=== PATIENT | female | born 1950 | race Caucasian/White ===

== ENCOUNTER → 2018-05-22 21:05 | Outpatient (REF) | payer MEDICARE, MEDICAID, SELFPAY ==
[2018-05-22 21:45] LABS: Anion Gap 8.4 mmol/L (3-11); BUN 14 mg/dL (7-18); CO2 25.6 mmol/L (21.0-32.0); CREATININE 0.71 mg/dL (0.55-1.02); Calcium 9.8 mg/dL (8.5-10.1); Chloride 108 mmol/L (98-107); Glucose 92 mg/dL (70-100); Potassium 4.7 mmol/L (3.5-5.1); Sodium 142 mmol/L (136-145)
== END ==
LOC: NCHCN 21:05
PROVIDERS: PCP Nurse Practitioner Family; Visit Provider Nurse Practitioner Family
DX: M81.0 Age-related osteoporosis without current pathological fracture (principal)
CPT/HCPCS: 80048

== ENCOUNTER 2018-07-08 11:43 | Outpatient (REF) | payer MEDICARE, MEDICAID, SELFPAY ==
[2018-07-08 13:34] LABS: Calcium 9.5 mg/dL (8.5-10.1)
[2018-07-09 09:51] LABS: Calcium (Random Urine) 14.2 mg/dl
[2018-07-09 13:56] LABS: Parathyroid Hormone,Intact 53 pg/ml (19-88)
[2018-07-09 14:20] LABS: Albumin 67.8 % (55.8-66.1); Total Protein 6.9 g/dl (6.3-8.2)
[2018-07-12 16:16] LABS: 6-monoacetylmorphine Not Detected ng/mL (Cutoff: 25); Amphetamines Negative ng/mL (Cutoff: 500); Barbiturates Negative ng/mL (Cutoff: 200); Benzodiazepines Negative ng/mL (Cutoff: 100); Cocaine Negative ng/mL (Cutoff: 150); Codeine Not Detected ng/mL (Cutoff: 25); Comment Normal; Creatinine, U 47.4 mg/dL; Dihydrocodeine Not Detected ng/mL (Cutoff: 25); EDDP Not Detected ng/mL (Cutoff: 25); Fentanyl Not Detected ng/mL (Cutoff: 2); Hydrocodone Not Detected ng/mL (Cutoff: 25); Hydromorphone Not Detected ng/mL (Cutoff: 25); Hydromorphone-3-beta-glucuroni Not Detected ng/mL (Cutoff: 100); Meperidine Not Detected ng/mL (Cutoff: 25); Methadone Not Detected ng/mL (Cutoff: 25); Morphine Not Detected ng/mL (Cutoff: 25); N-desmethyltapentadol Not Detected ng/mL (Cutoff: 50); Naloxone Not Detected ng/mL (Cutoff: 25); Norbuprenorphine Not Detected ng/mL (Cutoff: 5); Norfentanyl Not Detected ng/mL (Cutoff: 2); Norhydrocodone Not Detected ng/mL (Cutoff: 25); Normeperidine Not Detected ng/mL (Cutoff: 25); Noroxycodone Not Detected ng/mL (Cutoff: 25); Noroxymorphone Not Detected ng/mL (Cutoff: 25); O-desmethyltramadol Not Detected ng/mL (Cutoff: 25); Phencyclidine Negative ng/mL (Cutoff: 25); Propoxyphene Not Detected ng/mL (Cutoff: 25); Specific Gravity 1.006; Tapentadol Not Detected ng/mL (Cutoff: 25); Tetrahydrocannabinol Presumptive Positive ng/mL (Cutoff: 50); Tramadol Not Detected ng/mL (Cutoff: 25); pH 7.3
[2018-07-13 08:27] LABS: Carboxy-THC Interpretation Positive.; Delta-9 CarboxyThc by LC-MS/MS 312 ng/mL (Cutoff:<3)
== END 2018-07-08 12:03 ==
LOC: NCHCN 11:43
PROVIDERS: PCP Nurse Practitioner Family; Visit Provider Nurse Practitioner Family
DX: M54.2 Cervicalgia (principal); M54.5 Low back pain; G89.29 Other chronic pain; Z79.899 Other long term (current) drug therapy
CPT/HCPCS: 80307; 80349; 80364; 82040; 82310; 82340; 83970; 84165

== ENCOUNTER 2018-07-08 11:59 | Outpatient (CLI) | payer MEDICARE, MEDICAID, SELFPAY | END 2018-07-08 12:19 | PROVIDERS: PCP Nurse Practitioner Family; Visit Provider Student in an Organized Health Care Education/Training Program | DX: E83.52 Hypercalcemia (principal); M81.0 Age-related osteoporosis without current pathological fracture; N20.0 Calculus of kidney ==

== ENCOUNTER 2018-07-15 01:04 | Outpatient (CLI) | payer MEDICARE, MEDICAID, SELFPAY ==
--- NOTE | 2018-07-08 11:54 | DI.RAD_ITS ---
SYMPTOMS/DIAGNOSIS: H/O LUMBAR FUSION, ASSESS STABILITY, FAILED BACK SURGICAL SYNDROME, M96.1, POST LAMINECTOMY SYNDROME LUMBOSACRAL SPINE: Five views were obtained. Note is made of Muniz rods in place at what appears to be the L 4 - 5 level. The hardware appears intact. There are degenerative changes changes throughout the lumbar spine. The SI joints show mild degenerative changes. No true lateral view was obtained and I would request the patient return for true lateral view to assess vertebral alignment. Alternatively CT of the lumbar region could be obtained to assess status of the lumbar fusion.
== END 2018-07-15 01:24 ==
PROVIDERS: PCP Nurse Practitioner Family; Visit Provider Nurse Practitioner Family
DX: M96.1 Postlaminectomy syndrome, not elsewhere classified (principal)
CPT/HCPCS: 72110

== ENCOUNTER → 2018-07-17 09:39 | Outpatient (BNVA) | payer MEDICARE, MEDICAID, SELFPAY | PROVIDERS: Visit Provider Surgery | DX: Z12.11 Encounter for screening for malignant neoplasm of colon (principal) | CPT/HCPCS: S0285 ==

== ENCOUNTER 2018-07-29 09:44 | Outpatient (CLI) | payer MEDICARE, MEDICAID, SELFPAY | END 2018-07-29 10:04 | PROVIDERS: PCP Nurse Practitioner Family; Visit Provider Surgery | DX: R13.10 Dysphagia, unspecified (principal); Z12.11 Encounter for screening for malignant neoplasm of colon; Z01.818 Encounter for other preprocedural examination ==

== ENCOUNTER 2018-08-03 08:15 | Day surgery (SDC) | payer MEDICARE, MEDICAID, SELFPAY ==
--- NOTE | 2018-08-03 06:20 | W.PM.OP ---
Date of service: 08/03/18 Operative Note DATE OF PROCEDURE: 08/03/18 PRE-OP DIAGNOSIS: Dysphagia/ Screening Colonoscopy POST-OP DIAGNOSIS: other (Gastritis. Esophagitis, multiple polyps) PROCEDURE: EGD with biopsies and Colonoscopy with polypectomy with cold forceps SURGEON: Margot Wolf ANESTHESIA: MAC (Alexandra Moss CRNA) ESTIMATED BLOOD LOSS: 10 PATHOLOGY: other (Gastric Bx, esophageal bx, ascending colon polyps x2, transverse polyps, seigmoid polyp) COMPLICATIONS: None Patient was transported to: same day Patient's condition: stable Indications: Mrs. Mccray was seen in the office with complaints of dysphagia and also needs a screening colonoscopy. Risks, benefits and complications were reviewed and they wished to proceed. No guarantees were given or implied. Findings: Severe gastritis and moderate esophgagitis Colon polyps Procedure Description: After informed consent was obtained the patient was taken to the procedure room and placed in a left decubitous position. Monitors were applied and a time out was done. The patients name, date of , procedure, allergies to medications and metal in their body was reviewed. The patient was then sedated and a bite block was placed. The gastroscope was introduced and advanced through the oropharynx. The oropharynx was grossly normal. The scope was advanced into the esophagus. The proximal esophagus was normal. The mid-esophagus was normal. In the distal esophagus there was moderate inflammation. The scope was advanced into the stomach and through the pylorus into the duodenum. The duodenum was normal. The scope was retracted into the stomach. There was severe inflammation noted. Biopsies were done to rule out H. Pylori. The scope was retroflexed and no hiatal hernia was identified. The scope was straightened and retracted into the esophagus. Biopsies of the GE junction were done. The Z-line was regular. The GE junction was at 40 cm. The scope was removed and the patients bed was turned around. While still sedated and comfortable a rectal exam was done. External exam was normal. Internal exam revealed a normal sphincter tone and no palpable masses. The scope was then introduced and retroflexed. No internal hemorrhoids were identified. The scope was then advanced to the cecum without difficulty. The TI and appendiceal orifice were identified. The prep was good. The scope was then slowly retracted over 15 minutes back into the rectum. 4 polyps were removed with cold forceps. 2 in the ascending colon, 1 in the transverse colon and 1 in the sigmoid colon. Also noted was an old tattoo in the rectum. No polyp was identified in this area. The scope was removed and the patient was woken up and taken back to Same day surgery in stable condition. The patient tolerated the procedure well and there were no immediate complications. Follow up: The patient should follow up in 3-5 years unless they develop changes in bowel habits or other new gastrointestinal complaints. Start Time: 10:41 End Time: 11:19 Retraction time: 15 minutes
--- NOTE | 2018-08-03 06:23 | PDOC.DSDIS_ITS ---
Discharge Plan Disposition Patient Disposition: HOME Condition: Good Discharge Details Reason For Visit: SCREENING / GERD Attending Provider: Margot Wolf Primary Care Provider: Donna Vargas Home Meds and New Rx's Prescriptions: New sucralfate [Carafate] 1 gram tablet 1 gm PO QID Qty: 56 RF: 0 Continue pregabalin 100 mg capsule 100 mg PO BID 30 Days Qty: 60 RF: 0 cholecalciferol (vitamin D3) 1,000 unit capsule 1,000 unit PO DAILY RF: 0 pantoprazole 40 MG tablet,delayed release (DR/EC) 40 mg PO QAM Qty: 30 RF: 11 propranolol 60 MG capsule,extended release 24 hr 60 mg PO QAM Qty: 30 RF: 11 lamotrigine [Lamictal] 100 MG tablet 100 mg PO BID Qty: 60 RF: 11 magnesium oxide 400 MG tablet 400 mg PO DAILY Qty: 90 RF: 3 topiramate 50 MG tablet 50 mg PO BID Qty: 180 RF: 0 clopidogrel [Plavix] 75 MG tablet 75 mg PO DAILY Qty: 90 RF: 3 aclidinium bromide [Tudorza Pressair] 30 PUFF aerosol powdr breath activated 1 puff Inhalation BID Qty: 1 RF: 2 albuterol sulfate [ProAir HFA] 8.5 GM HFA aerosol inhaler 1 puff Inhalation TID RF: 0 Marijuana 1 tab PO DAILY RF: 0 albuterol sulfate 2.5 MG/3 ML solution for nebulization 1 ea Inhalation Q4H PRN PRNRF: 0 polyethylene glycol 3350 17 GM powder in packet 17 g PO DAILY PRNRF: 0 albuterol sulfate [Proventil HFA] 6.7 GM HFA aerosol inhaler 2 puff Inhalation Q4H PRN PRNRF: 0 onabotulinumtoxinA [Botox] 200 UNIT recon soln 155 units DIRECTED RF: 0 fluticasone-vilanterol [Breo Ellipta] 1 PUFF blister with device 1 puff Inhalation DAILY RF: 0 ondansetron 4 MG tablet,disintegrating 4 mg PO Q6H PRN PRN (Reason: Nausea / Vomiting) Qty: 30 RF: 0 Discontinued polyethylene glycol 3350 17 gram powder in packet 255 g PO DAILY Qty: 15 RF: 0 bisacodyl [Dulcolax (bisacodyl)] 5 mg tablet,delayed release (DR/EC) 5 mg PO ONCE Qty: 4 RF: 0 Discharge Instructions Instructions: Upper Endoscopy (DC), Colonoscopy (DC), Gastritis (DC), Diet for Stomach Ulcers and Gastritis (GEN), Esophagitis (DC), Colorectal Polyps (DC) Additional Instructions: Findings: Inflammation of the stomach and esophagus 3 polyps in the large bowel Follow up: 2-3 weeks New Medications: Carafate 1 gm 4 x a day Please call if you develop: fevers >101.5 Nausea or Vomiting Abdominal pain that is not transient 1. Because there will be medication in your system for the next 24 hours, you may feel a little sleepy. Your coordination will be affected. Therefore: a. Do not drive or operate dangerous equipment for 24 hours. b. Do not drink alcohol beverages for 24 hours (not even beer). c. Plan to go home and rest for the day. 2. Generally there are no restrictions on your activity after a day or so has gone by, but you may feel a bit fatigued for a few days. 3 After you arrive home you may have a light meal and return to a normal diet as you can tolerate it without feeling sick to your stomach. 4. After surgery, you may feel pain or discomfort. This should be only transient , but if it persists please contact your doctor. 5. If there are any questions regarding the findings of your procedure, please feel free to contact your doctor. 6. If you are unable to contact your doctor with a problem, contact the hospital at [phone]. 7. Continue all your regular medications unless directed otherwise. I understand the above instructions and have no questions. Signature of Patient or Responsible Adult Escort Date/Time Name of Responsible Adult Escort Signature of Nurse Date/Time Referrals: Margot Wolf MD [ [facility] STAFF PHYSICIAN] - (2-3 weeks) Activity:: Activity as Tolerated Diet:: low acid diet Discharge Orders Discharge Orders: Discharge Order (Routine); Ordered 08/03/18 Ordered By: Margot Wolf DS: Diagnosis Discharge Diagnosis (1) Colorectal polyps: Status: Acute (2) Esophagitis determined by endoscopy: Status: Acute (3) Gastritis determined by biopsy: Status: Acute
[2018-08-03 08:25] VITALS: BP 128/91; PULSE 87; RESP 16; TEMP 35.6; O2SAT 96
[2018-08-03] MEDS: Lactated Ringers 1,000 ML 80 ML IV ×2 (09:15→11:10)
--- NOTE | 2018-08-03 10:43 | STOM_PTH ---
PATIENT: Keyonna Mccray LOC: [facility] U#:[id number] AGE/SX: 68/F ROOM: RE08/03/[address]: Margot Wolf MD : [id number] BED: DIS: 08/03/2018 SPEC #: [id number] RECD: 08/03/18 12:35 STATUS: KENY REQ #: [id number] YANELI: 08/03/18 10:[address]: Margot Wolf DEPT: Surgical Specimen RECD BY: Molly Biggs ENTERED: 08/03/18 12:37 SP TYPE: STOMACH OTHR DR: Donna Vargas Tissues: 1 - STOMACH BIOPSY 2 - STOMACH BIOPSY 3 - ESOPHAGUS BIOPSY 4 - BIOPSY BOWEL 5 - BIOPSY BOWEL 6 - BIOPSY BOWEL Procedures: GROSS AND MICRO LEVEL 4 Comments: [id number]
[2018-08-03 12:01] VITALS: BP 127/70; PULSE 72; RESP 18; TEMP 35.5; O2SAT 99
== END 2018-08-03 12:30 | disposition home or self-care (01) ==
LOC: SUR 08:15
PROVIDERS: PCP Nurse Practitioner Family; Visit Provider Surgery
PROC: (CPT 43239; principal; 2018-08-03 10:00)
DX: Z12.11 Encounter for screening for malignant neoplasm of colon (principal); D12.2 Benign neoplasm of ascending colon; D12.3 Benign neoplasm of transverse colon; D12.5 Benign neoplasm of sigmoid colon; R13.10 Dysphagia, unspecified; K20.9 Esophagitis, unspecified; K31.89 Other diseases of stomach and duodenum; K31.7 Polyp of stomach and duodenum; J44.9 Chronic obstructive pulmonary disease, unspecified; K21.9 Gastro-esophageal reflux disease without esophagitis
CPT/HCPCS: 43239; 45380; 88305

== ENCOUNTER 2018-08-10 18:20 | Outpatient (REF) | payer MEDICARE, MEDICAID, SELFPAY | END 2018-08-10 18:40 | LOC: NCHCN 18:20 | PROVIDERS: PCP Nurse Practitioner Family; Visit Provider Nurse Practitioner Family | DX: N89.8 Other specified noninflammatory disorders of vagina (principal) | CPT/HCPCS: 87480; 87510; 87660 ==

== ENCOUNTER → 2018-08-18 12:47 | Outpatient (BNVA) | payer MEDICARE, MEDICAID, SELFPAY | PROVIDERS: PCP Nurse Practitioner Family; Referring Provider Nurse Practitioner Family; Visit Provider Surgery | DX: K22.70 Barrett's esophagus without dysplasia (principal); J44.9 Chronic obstructive pulmonary disease, unspecified; F17.290 Nicotine dependence, other tobacco product, uncomplicated | CPT/HCPCS: 99212; 99213 ==

== ENCOUNTER 2018-08-18 13:15 | Outpatient (CLI) | payer MEDICARE, MEDICAID, SELFPAY ==
[2018-08-18 14:55] LABS: TSH 0.86 uIU/mL (0.358-3.74)
== END 2018-08-18 13:35 ==
PROVIDERS: PCP Nurse Practitioner Family; Visit Provider Student in an Organized Health Care Education/Training Program
DX: M80.00XD Age-related osteoporosis with current pathological fracture, unspecified site, subsequent encounter for fracture with routine healing (principal); M81.8 Other osteoporosis without current pathological fracture
CPT/HCPCS: 36415; 99212; 99213; 84443

== ENCOUNTER 2018-10-30 16:55 | Outpatient (REF) | payer MEDICARE, MEDICAID, SELFPAY ==
[2018-10-30 19:23] LABS: HCT 42.6 % (36.0-46.0); HGB 13.9 g/dL (12.0-15.5); Mean Corp. HGB Concentration 32.6 g/dL (32.0-36.0); Mean Corpuscular Hemoglobin 32.3 pg (27.0-33.0); Mean Corpuscular Volume 98.8 fL (80-95); Mean Platelet Volume 11.8 fL (8.0-11.0); Platelet Count 194 x1000/uL (130-400); RBC 4.31 m/cumm (4.00-5.20); RBC Distribution Width 12.9 % (11.7-14.6); White Blood Cell Count 5.69 k/cumm (4.4-10.8)
== END 2018-10-30 17:15 ==
LOC: NCHCN 16:55
PROVIDERS: PCP Nurse Practitioner Family; Visit Provider Nurse Practitioner Family
DX: R04.2 Hemoptysis (principal)
CPT/HCPCS: 85027

== ENCOUNTER 2018-11-17 01:11 | Outpatient (CLI) | payer MEDICARE, MEDICAID, SELFPAY ==
[2018-11-17] MEDS: Barium Sulfate 60% W/V 355 ML BTL PO (10:28)
[2018-11-17] MEDS: Barium Sulfate 700 MG TAB PO (10:29)
--- NOTE | 2018-11-17 12:35 | DI.RAD_ITS ---
SYMPTOM/DIAGNOSIS: DYSPHAGIA R13.10 CHOKING ON FOOD/FLUIDS BARIUM SWALLOW: Fluoroscopy Time: 36 sec The lateral director of placement view of the neck shows previous cervical spine fusion. Degenerative changes seen at C2-3 and C3-4. There is no prevertebral soft tissue swelling. The PA and lateral chest films are compared to Fe 17. The heart size is normal. The lungs appear clear. The patient swallowed Barium without difficulty. There is normal esophageal peristalsis. Laryngeal penetration was noted during the swallow. There is a mildly prominent cricopharyngeus impression. The patient had some difficulty swallowing the tablet likely secondary to dentures. No ulceration, stricture or mass is seen. No gastroesophageal reflux was observed. IMPRESSION: Laryngeal penetration, mildly prominent cricopharyngeus impression.
== END 2018-11-17 01:31 ==
PROVIDERS: PCP Nurse Practitioner Family; Visit Provider Nurse Practitioner Family
DX: R13.10 Dysphagia, unspecified (principal); J39.2 Other diseases of pharynx
CPT/HCPCS: 74220; J3490

== ENCOUNTER 2018-12-25 14:01 | Outpatient (REF) | payer MEDICARE, MEDICAID, SELFPAY ==
[2018-12-25 18:43] LABS: HCT 43.3 % (36.0-46.0); HGB 14.2 g/dL (12.0-15.5); Mean Corp. HGB Concentration 32.8 g/dL (32.0-36.0); Mean Corpuscular Hemoglobin 32.3 pg (27.0-33.0); Mean Corpuscular Volume 98.6 fL (80-95); Mean Platelet Volume 12.1 fL (8.0-11.0); Platelet Count 173 x1000/uL (130-400); RBC 4.39 m/cumm (4.00-5.20); RBC Distribution Width 13.9 % (11.7-14.6); White Blood Cell Count 4.32 k/cumm (4.4-10.8)
[2018-12-25 18:45] LABS: Cholesterol 260 mg/dL (50-200); HDL Cholesterol 79 mg/dL (40-60); LDL CHOLESTEROL 154 mg/dL (<100); Triglyceride 80 mg/dL (30-150)
== END 2018-12-25 14:21 ==
LOC: NCHCN 14:01
PROVIDERS: PCP Nurse Practitioner Family; Visit Provider Nurse Practitioner Family
DX: E78.5 Hyperlipidemia, unspecified (principal); R04.2 Hemoptysis; R89.9 Unspecified abnormal finding in specimens from other organs, systems and tissues
CPT/HCPCS: 80061; 83721; 85027

== ENCOUNTER 2019-03-23 22:17 | Outpatient (REF) | payer MEDICARE, MEDICAID, SELFPAY ==
[2019-03-23 22:11] LABS: ALT 19 U/L (12-78); AST 19 U/L (15-37); Creatine Kinase 62 U/L (26-192)
== END 2019-03-23 22:37 ==
LOC: NCHCN 22:17
PROVIDERS: PCP Nurse Practitioner Family; Visit Provider Nurse Practitioner Family
DX: E78.5 Hyperlipidemia, unspecified (principal); M79.10 Myalgia, unspecified site; I67.9 Cerebrovascular disease, unspecified; R13.10 Dysphagia, unspecified; M81.0 Age-related osteoporosis without current pathological fracture
CPT/HCPCS: 82550; 84450; 84460

== ENCOUNTER 2019-04-27 10:09 | Outpatient (REF) | payer MEDICARE, MEDICAID, SELFPAY ==
[2019-04-27 21:54] LABS: Abs Immature Grans 0.01 k/cumm (0.0-0.09); Absolute Basophil Count 0.07 k/cumm (0.0-0.2); Absolute Eosinophil Count 0.14 k/cumm (0.0-0.7); Absolute Monocyte Count 0.62 k/cumm (0.11-0.7); Basophils % 1.2; Eosinophils % 2.3; HCT 47.3 % (36.0-46.0); Immature Grans % 0.2; Lymphocytes % 39.7; Mean Corp. HGB Concentration 33.8 g/dL (32.0-36.0); Mean Corpuscular Hemoglobin 33.3 pg (27.0-33.0); Mean Corpuscular Volume 98.5 fL (80-95); Mean Platelet Volume 12.7 fL (8.0-11.0); Monocytes % 10.3; Neutrophils % 46.3; Platelet Count 184 x1000/uL (130-400); RBC Distribution Width 13.9 % (11.7-14.6); White Blood Cell Count 6.04 k/cumm (4.4-10.8)
[2019-04-27 22:14] LABS: Calculated LDL 158 mg/dL; Cholesterol 261 mg/dL (50-200); HDL Cholesterol 82 mg/dL (40-60); Triglyceride 107 mg/dL (30-150)
== END 2019-04-27 10:29 ==
LOC: NCHCN 10:09
PROVIDERS: PCP Nurse Practitioner Family; Visit Provider Nurse Practitioner Family
DX: E78.5 Hyperlipidemia, unspecified (principal); M79.10 Myalgia, unspecified site; R63.4 Abnormal weight loss
CPT/HCPCS: 80061; 83721; 85025

== ENCOUNTER 2019-05-31 11:42 | Outpatient (REF) | payer MEDICARE, MEDICAID, SELFPAY ==
[2019-06-02 12:42] LABS: HSV 1 DNA Result Negative; HSV 2 DNA Result POSITIVE; Specimen Description Vagina
[2019-06-02 15:23] LABS: Chlamydia Result Negative; GC Result Negative; Specimen Description CERVIX
== END 2019-05-31 12:02 ==
LOC: NCHCN 11:42
PROVIDERS: PCP Nurse Practitioner Family; Visit Provider Nurse Practitioner Family
DX: N93.9 Abnormal uterine and vaginal bleeding, unspecified (principal)
CPT/HCPCS: 87491; 87529; 87591; 87480; 87510; 87660

== ENCOUNTER 2019-06-02 03:44 | Outpatient (CLI) | payer MEDICARE, MEDICAID, SELFPAY ==
--- NOTE | 2019-06-02 12:47 | DI.US_ITS ---
SYMPTOMS/DIAGNOSIS: ABNORMAL VAGINAL BLEEDING, N93.9, S/P HYSTERECTOMY PELVIC ULTRASOUND: The patient is status post hysterectomy. Transabdominal and transvaginal exams were performed. The ovaries were unable to be visualized. No mass is identified. No free fluid is seen. There is no evidence of hydronephrosis. The bladder wall appears thickened and trabeculated; however, the bladder was not well distended. There is a question of some calcifications within the bladder wall. IMPRESSION: Nonvisualization of the ovaries. Question of calcifications within the bladder wall.
== END 2019-06-02 04:04 ==
PROVIDERS: PCP Nurse Practitioner Family; Visit Provider Nurse Practitioner Family
DX: N93.9 Abnormal uterine and vaginal bleeding, unspecified (principal)
CPT/HCPCS: 76830; 76856

== ENCOUNTER 2019-06-07 07:12 | Emergency (ER) | payer MEDICARE, MEDICAID, SELFPAY ==
[2019-06-07] VITALS (22 sets, daily range): BP systolic 111–170; BP diastolic 62–111; PULSE 69–85; RESP 13–30; TEMP 36.6; O2SAT 96–100
--- NOTE | 2019-06-07 07:18 | DI.CT_ITS ---
SYMPTOM/DIAGNOSIS: SIGNIFICANT VAGINAL BLEEDING, RECENT BENIGN US ABDOMINAL AND PELVIS CT: 06/07 CT examination of the abdomen and pelvis was performed with a bolus infusion of 100 cc Omnipaque 350. Images obtained through the lung bases were unremarkable. Liver, spleen, and pancreas in appearance. Gallbladder and bile ducts are CT normal. Adrenals and kidneys are unremarkable. No urinary tract calcification or obstruction. Abdominal aorta has heavily calcified plaque throughout. Celiac trunk and SMA appear intact as do the renal arteries. There is an eccentric low attenuation finding in the infrarenal abdominal aorta with morphology suggesting dissection, this could just represent prominent eccentric plaque and there is significant artifact through this area from orthopaedic hardware making visualization suboptimal. The distal abdominal aorta and common iliac arteries show opacification with no evidence of a complete occlusion. There is prominent calcific plaque in common internal and external iliac arteries bilaterally. Less than 50% luminal diameter narrowing of common iliac arteries bilaterally, greater than 50% luminal diameter stenosis right and left internal iliac arteries. I would note that the celiac trunks, superior mesenteric artery and inferior mesenteric artery appear intact bilaterally. The patient reportedly has very marked vaginal bleeding. There is apparent active hemorrhage in what appears to be vagina and/or uterine remnant in a patient who has reportedly had prior hysterectomy. The ovaries are not identified. There is a large hematoma occupying the vagina/uterine remnant. There is marked wall thickening of the urinary bladder which is nonspecific. Please correlate clinically. CONCLUSION: 1. Active bleeding with opacified contrast material in vagina/uterine remnant and large clot at this site. 2. 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 3. Additional findings as described above.
[2019-06-07] MEDS: Normal Saline 1,000 ML 1000 ML IV (07:21)
--- NOTE | 2019-06-07 07:28 | NUR.NOTE ---
Nursing Note: pt to CT with RN on monitor.
--- NOTE | 2019-06-07 07:29 | ED.GENADUL_ITS ---
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 Clinical Impression: Vaginal hemorrhage Primary Care Provider: Donna Vargas ED Provider: Rosanna Villarreal Home Meds and New Rx's Prescriptions: No Action cholecalciferol (vitamin D3) 1,000 unit capsule 1,000 unit PO DAILY RF: 0 pregabalin [Lyrica] 100 mg capsule 100 mg PO BID RF: 0 pantoprazole 40 MG tablet,delayed release (DR/EC) 40 mg PO QAM Qty: 30 RF: 11 propranolol 60 MG capsule,extended release 24 hr 60 mg PO QAM Qty: 30 RF: 11 lamotrigine [Lamictal] 100 MG tablet 100 mg PO BID Qty: 60 RF: 11 magnesium oxide 400 MG tablet 400 mg PO DAILY Qty: 90 RF: 3 topiramate 50 MG tablet 50 mg PO BID Qty: 180 RF: 0 clopidogrel [Plavix] 75 MG tablet 75 mg PO DAILY Qty: 90 RF: 3 aclidinium bromide [Tudorza Pressair] 30 PUFF aerosol powdr breath activated 1 puff Inhalation BID Qty: 1 RF: 2 Marijuana 1 tab PO DAILY RF: 0 albuterol sulfate 2.5 MG/3 ML solution for nebulization 1 ea Inhalation Q4H PRN PRNRF: 0 polyethylene glycol 3350 17 GM powder in packet 17 g PO DAILY PRNRF: 0 albuterol sulfate [Proventil HFA] 6.7 GM HFA aerosol inhaler 2 puff Inhalation Q4H PRN PRNRF: 0 onabotulinumtoxinA [Botox] 200 UNIT recon soln 155 units DIRECTED RF: 0 fluticasone furoate-vilanterol [Breo Ellipta] 1 PUFF blister with device 1 puff Inhalation DAILY RF: 0 ondansetron 4 MG tablet,disintegrating 4 mg PO Q6H PRN PRN (Reason: Nausea / Vomiting) Qty: 30 RF: 0 Discharge Data Discharge Date/Time-TO BE ENTERED AT DEPARTURE: 06/07/19 09:11 Medical Decision Making <Parish Mcginnis DO - Last Filed: 06/08/19 03:42> This is a 69-year-old female with a past medical history of hypertension, previous stroke on Plavix who presents today for evaluation of vaginal bleeding. Patient states that for the last 2 weeks she has had vaginal bleeding which is been mild to moderate. Unfortunately since 10 PM last night vaginal bleeding is notably increased with associated severe abdominal cramping and pain. She is gone through multiple pads every hour, and has been passing large clots. She has never had any symptoms like this before. Exam demonstrates a pale female with a stable blood pressure, no tachycardia. Notable abdominal and suprapubic tenderness. Concern is high for significant bleeding etiology made worse by her Plavix. She did have an ultrasound 5 days ago and this was unremarkable. We will place 2 large-bore IVs, start fluids, type and screen, blood work and CT of the abdomen. Case will be signed out to my colleague Dr. Melinda Villarreal for further management disposition as well as follow-up on labs and imaging. <Rosanna Villarreal MD - Last Filed: 06/12/19 08:00> Keyonna Mccray was signed out to me at time of shift change by Dr. Mcginnis with imaging, labs, disposition pending. Radiology reported to me over the phone CT a/p shows active uterine hemorrhage (? h/o partial hysterectomy) abnormal bladder with thickened wall, possible mass, and also aortic dissection that appears chronic, unrelated to vaginal bleeding. Given report of active hemorrhage, manager compliance paged emergently to the ED. Pt evaluated at bedside, significant vaginal bleeding. Pt is alert and oriented, appears mildly anxious but otherwise in no distress. Abd NTTP. Neuro exam of the lower extremities normal. DP pulses intact and symmetric. Vital signs WNL. Exam/hx not c/w sepsis, acute aortic dissection requiring emergent intervention. Anti-hypertensives not indicated given active hemorrhage. 2 units uncrossed blood ordered emergently, as well as IV TXA. Hgb 14.9 from 05/07. Dr. Heart of gynecology reviewed CT, present at bedside. He states that this facility not appropriate, Pt cannot undergo surgical intervention here and needs higher level of care, requests transfer to tertiary facility, agrees with 2 units PRBCs and TXA. Dr. Heart placing vaginal packing. I immediately discussed [place] [facility] [place] Dr. Rosales of manager compliance and Dr. Mack of EM, Pt accepted by Dr. Mack for ED to ED transfer. I discussed all pertinent findings/results, including abnormal bladder/possible bladder mass and aortic dissection with Dr. Mack. I relayed my concern that Pt should also be evaluated by vascular in addition to manager compliance and manager compliance onc (with possible intervenion by IR) as planned. [facility] helicopter not flying 2/2 weather, [facility] ground >1 hr away. Given emergent need for procedural intervention beyond the scope of [facility] capabilities, Pt best suited for immediate ground transfer with local medics. Notified by blood bank that FFP would take 30-40 min before able to be administered. Risk/benefit of delay of transfer for FFP considered, I believe that benefit does not outweigh risk. Dr. Mack notified no FFP to be given at [facility] 2/2 delay. On multiple reassessments Pt continues to be alert, anxious, but otherwise in no distress. No complaint of pain or other symptoms. Chart notes Pt as Pt as DNI, I discussed this with Pt who states that she would like to be intubated should need to be for procedural intervention. Pt transferred out of ED by medics without incident. Medical Records Medical records reviewed: Yes I reviewed the patient's medical records. Lab Data Lab results reviewed: Yes I reviewed the patient's lab results. Laboratory Tests Range/Units 06/07/19 06/07/19 06/07/19 07:21 07:21 07:21 WBC (4.4-10.8) k/cumm 8.23 RBC (4.00-5.20) m/cumm 4.42 Hgb (12.0-15.5) g/dL 14.7 Hct (36.0-46.0) % 44.1 MCV (80-95) fL 99.8 H MCH (27.0-33.0) pg 33.3 H MCHC (32.0-36.0) g/dL 33.3 RDW (11.7-14.6) % 14.6 Plt Count (130-400) x1000/uL 257 MPV (8.0-11.0) fL 11.5 H Immature Gran % 0.4 Neutrophils % 69.0 Lymphocytes % 19.0 Monocytes % 9.8 Eosinophils % 1.1 Basophils % 0.7 Absolute Neutrophils (1.2-6.7) k/cumm 5.68 Absolute Lymphocytes (1.2-3.4) k/cumm 1.56 Absolute Monocytes (0.11-0.7) k/cumm 0.81 H Absolute Eosinophils (0.0-0.7) k/cumm 0.09 Absolute Basophils (0.0-0.2) k/cumm 0.06 PT (9.3-11.0) sec 9.3 INR (0.9-1.1) 0.9 APTT (21.0-31.4) sec 23.5 Sodium (136-145) mmol/L 145 Potassium (3.5-5.1) mmol/L 4.2 Chloride (98-107) mmol/L 108 H Carbon Dioxide (21.0-32.0) mmol/L 24.8 Anion Gap (3-11) mmol/L 12.2 H BUN (7-18) mg/dL 15 Creatinine (0.55-1.02) mg/dL 0.90 Estimated GFR/1.73 m2 (mL/min/1.73m2) >= 60.00 Glucose (70-100) mg/dL 77 Calcium (8.5-10.1) mg/dL 9.5 Total Bilirubin (0.2-1.0) mg/dL 0.8 AST (15-37) U/L 18 ALT (12-78) U/L 15 Alkaline Phosphatase (46-116) U/L 108 Total Protein (6.4-8.2) g/dL 6.9 Albumin (3.4-5.0) g/dL 3.6 Patient ABO/Rh Antibody Screen Crossmatch Range/Units 06/07/19 07:21 WBC (4.4-10.8) k/cumm RBC (4.00-5.20) m/cumm Hgb (12.0-15.5) g/dL Hct (36.0-46.0) % MCV (80-95) fL MCH (27.0-33.0) pg MCHC (32.0-36.0) g/dL RDW (11.7-14.6) % Plt Count (130-400) x1000/uL MPV (8.0-11.0) fL Immature Gran % Neutrophils % Lymphocytes % Monocytes % Eosinophils % Basophils % Absolute Neutrophils (1.2-6.7) k/cumm Absolute Lymphocytes (1.2-3.4) k/cumm Absolute Monocytes (0.11-0.7) k/cumm Absolute Eosinophils (0.0-0.7) k/cumm Absolute Basophils (0.0-0.2) k/cumm PT (9.3-11.0) sec INR (0.9-1.1) APTT (21.0-31.4) sec Sodium (136-145) mmol/L Potassium (3.5-5.1) mmol/L Chloride (98-107) mmol/L Carbon Dioxide (21.0-32.0) mmol/L Anion Gap (3-11) mmol/L BUN (7-18) mg/dL Creatinine (0.55-1.02) mg/dL Estimated GFR/1.73 m2 (mL/min/1.73m2) Glucose (70-100) mg/dL Calcium (8.5-10.1) mg/dL Total Bilirubin (0.2-1.0) mg/dL AST (15-37) U/L ALT (12-78) U/L Alkaline Phosphatase (46-116) U/L Total Protein (6.4-8.2) g/dL Albumin (3.4-5.0) g/dL Patient ABO/Rh O Positive Antibody Screen Negative Crossmatch See Detail HPI <Parish Mcginnis DO - Last Filed: 06/08/19 03:42> General Date/Time Provider Initiated Documentation: 06/07/19 07:14 . HPI Narrative: This is a 69-year-old female with a past medical history of hypertension, previous stroke and this on Plavix, who presents today for evaluation of vaginal bleeding. For the past 2 weeks she has had mild to moderate vaginal bleeding, she did see her PCP who scheduled an outpatient ultrasound. Ultrasound results were relatively unremarkable. Unfortunately since 10 PM last night her bleeding has significantly increased leading to passage of multiple clots, multiple soaked pads on the hour, and moderate to severe abdominal pain. She denies any vomiting or diarrhea. She denies any history of cancer. She has no other complaints at this time. She denies any history of significant vaginal problems. No other modifying factors. Related Data Home Medications Medication Instructions Recorded Confirmed pantoprazole 40 mg PO QAM #30 tab 12/09/16 09/21/18 lamotrigine [Lamictal] 100 mg PO BID #60 tab 12/21/16 09/21/18 propranolol 60 mg PO QAM #30 capcr 12/21/16 09/21/18 magnesium oxide 400 mg PO DAILY #90 tab 01/06/17 09/21/18 clopidogrel [Plavix] 75 mg PO DAILY #90 tab 01/10/17 09/21/18 topiramate 50 mg PO BID #180 tab-cap 01/10/17 09/21/18 aclidinium bromide [Tudorza 1 puff INHALATION BID #1 inh 05/27/17 09/21/18 Pressair] albuterol sulfate 1 ea INHALATION Q4H PRN PRN 02/19/18 09/21/18 albuterol sulfate [Proventil HFA] 2 puff INHALATION Q4H PRN PRN 02/19/18 09/21/18 fluticasone furoate-vilanterol 1 puff INHALATION DAILY 02/19/18 09/21/18 [Breo Ellipta] onabotulinumtoxinA [Botox] 155 units DIRECTED 02/19/18 09/21/18 ondansetron 4 mg PO Q6H PRN PRN #30 tabef 02/19/18 09/21/18 polyethylene glycol 3350 17 g PO DAILY PRN 02/19/18 09/21/18 Marijuana 1 tab PO DAILY 03/04/18 09/21/18 cholecalciferol (vitamin D3) 1,000 1,000 unit PO DAILY 07/17/18 09/21/18 unit capsule pregabalin 100 mg capsule 100 mg PO BID 09/21/18 09/21/18 Previous Rx's Medication Instructions Recorded ondansetron 4 mg PO Q6H PRN PRN #30 tabef 02/19/18 Allergies Allergy/AdvReac Type Severity Reaction Status Date / Time budesonide [From Symbicort] Allergy Severe Seizure Unverified 09/21/18 10:10 formoterol [From Symbicort] Allergy Severe Seizure Unverified 09/21/18 10:10 tiotropium bromide Allergy Unknown Dizziness/Lightheaded/seizures Unverified 09/21/18 10:10 [From Spiriva with 03/27/16 HandiHaler] ibuprofen AdvReac Severe VOMITING Unverified 09/21/18 10:10 aspirin AdvReac Intermediate vomits Unverified 09/21/18 10:10 codeine [Codeine] AdvReac Intermediate vomit Unverified 09/21/18 10:10 cyclobenzaprine AdvReac Intermediate Severe Unverified 09/21/18 10:10 weakness, out of it fluticasone AdvReac Intermediate Dizzieness, Unverified 09/21/18 10:10 fall shellfish derived AdvReac Intermediate vomits Unverified 09/21/18 10:10 (scallops) NSAIDS (Non-Steroidal AdvReac Mild VOMITS Unverified 09/21/18 10:10 Anti-Inflamma General 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 Housing: assisted living facility What type of physical activity do you participate in: walking Do you feel safe in your relationship?: Yes Exam <Parish Mcginnis DO - Last Filed: 06/08/19 03:42> Narrative Exam Narrative: 1.Const: Well-nourished, Well-developed, appearing stated age 2.Eyes: PERRL, no conjunctival injection, and symmetrical lids. 3.ENT: Atraumatic external nose and ears. Moist MM. Neck: Symmetric, trachea midline, No thyromegaly. 4.CVS: +S1/S2, No murmurs or gallops. Peripheral pulses 2+ and equal in all extremities. Brisk capillary refill in all extremities. 5.RESP: Unlabored respiratory effort. Clear to auscultation bilaterally. No wheezes rales or rhonchi 6.GI: Soft, nondistended, notable tenderness in the lower abdominal quadrants. As well as suprapubic and pelvic tenderness. Active vaginal bleeding is present. 7.MSK: Normocephalic/Atraumatic, Extremities w/o deformity or ttp No cyanosis or clubbing, Normal movement of all extremities 8.Skin: Warm, Dry. pale 9.Neuro: sheep killer II-XII grossly intact. Sensation grossly intact, no focal neurologic deficits. 10.Psych: (AAO) x3. Appropriate mood and affect Course <Parish Mcginnis DO - Last Filed: 06/08/19 03:42> Vital Signs Temperature 36.6 C 06/07/19 07:12 Pulse 79 06/07/19 07:12 Respiratory Rate 16 06/07/19 07:12 Blood Pressure 146/97 H 06/07/19 07:12 Pulse Oximetry 97 06/07/19 07:12 Temperature 36.6 C 06/07/19 07:12 Temperature Source Skin 06/07/19 07:12 Pulse 79 06/07/19 07:12 Respiratory Rate 16 06/07/19 07:12 Blood Pressure 146/97 H 06/07/19 07:12 Blood Pressure Position Supine 06/07/19 07:12 Pulse Oximetry 97 06/07/19 07:12 Oxygen Delivery Method Room Air 06/07/19 07:12 Oxygen Flow Rate 0 06/07/19 07:12 Pain Level 5 06/07/19 07:12 Comment 06/07/19 07:12 <Rosanna Villarreal MD - Last Filed: 06/12/19 08:00> Critical Care Time: Yes Total Critical Care Time: 50 Attestation: I have spent a total of 50 min of critical care time with this critically ill patient. Sign Out <Parish Mcginnis DO - Last Filed: 06/08/19 03:42> Sign Out Data: Sign Out Comment: Notable vaginal bleeding, pending labs, CT imaging. Last updated by Parish Mcginnis DO at 06/07/19 07:45
[2019-06-07] MEDS: Omnipaque 350 MG/ML 100 ML BTL IJ (07:34)
[2019-06-07 07:35] LABS: Abs Immature Grans 0.03 k/cumm (0.0-0.09); Absolute Basophil Count 0.06 k/cumm (0.0-0.2); Absolute Eosinophil Count 0.09 k/cumm (0.0-0.7); Absolute Lymphocyte Count 1.56 k/cumm (1.2-3.4); Absolute Monocyte Count 0.81 k/cumm (0.11-0.7); Absolute Neutrophil Count 5.68 k/cumm (1.2-6.7); Basophils % 0.7; Eosinophils % 1.1; HCT 44.1 % (36.0-46.0); HGB 14.7 g/dL (12.0-15.5); Immature Grans % 0.4; Mean Corp. HGB Concentration 33.3 g/dL (32.0-36.0); Mean Corpuscular Hemoglobin 33.3 pg (27.0-33.0); Mean Corpuscular Volume 99.8 fL (80-95); Mean Platelet Volume 11.5 fL (8.0-11.0); Monocytes % 9.8; Platelet Count 257 x1000/uL (130-400); RBC 4.42 m/cumm (4.00-5.20); RBC Distribution Width 14.6 % (11.7-14.6); White Blood Cell Count 8.23 k/cumm (4.4-10.8)
[2019-06-07 07:49] LABS: ALT 15 U/L (12-78); AST 18 U/L (15-37); Albumin 3.6 g/dL (3.4-5.0); Alkaline Phosphatase 108 U/L (46-116); Anion Gap 12.2 mmol/L (3-11); BUN 15 mg/dL (7-18); Bilirubin, Total 0.8 mg/dL (0.2-1.0); CO2 24.8 mmol/L (21.0-32.0); Calcium 9.5 mg/dL (8.5-10.1); Chloride 108 mmol/L (98-107); Glucose 77 mg/dL (70-100); Potassium 4.2 mmol/L (3.5-5.1); Sodium 145 mmol/L (136-145); Total Protein 6.9 g/dL (6.4-8.2)
[2019-06-07 07:56] LABS: INR 0.9 (0.9-1.1); PTT Activated 23.5 sec (21.0-31.4); Prothrombin Time 9.3 sec (9.3-11.0)
--- NOTE | 2019-06-07 08:00 | NUR.NOTE ---
Nursing Note: Pt resting in stretcher passed another clot approx the size of two golf balls. pt cleansed with warm bath wipes.
--- NOTE | 2019-06-07 08:17 | NUR.NOTE ---
Nursing Note: Women's wellness physician at bedside with RN ramp supervisor for vaginal exam
--- NOTE | 2019-06-07 08:30 | NUR.NOTE ---
Nursing Note: flood put in per OBGYN physician at bedside.
--- NOTE | 2019-06-07 09:03 | NUR.NOTE ---
Nursing Note: First unit of blood completed, pt tolerated well. no signs of transfusion reaction. Second unit hanging.
--- NOTE | 2019-06-07 09:05 | NUR.NOTE ---
Nursing Note: EMS Crew at bedside to transport patient to [facility].
== END 2019-06-07 09:11 | disposition short-term general hospital (02) ==
PROVIDERS: Student in an Organized Health Care Education/Training Program; Emergency Provider Student in an Organized Health Care Education/Training Program; PCP Nurse Practitioner Family
DX: N93.9 Abnormal uterine and vaginal bleeding, unspecified (principal); I71.02 Dissection of abdominal aorta; R93.41 Abnormal radiologic findings on diagnostic imaging of renal pelvis, ureter, or bladder; R10.30 Lower abdominal pain, unspecified; Z90.710 Acquired absence of both cervix and uterus; I10 Essential (primary) hypertension; Z79.02 Long term (current) use of antithrombotics/antiplatelets
CPT/HCPCS: 36415; 36430; 80053; 86850; 86900; 86901; 86920; 96361; 96375; 99291; 74177; 85025; 85610; 85730; J3490; P9016

== ENCOUNTER 2019-06-09 16:00 | Outpatient (REF) | payer MEDICARE, MEDICAID, SELFPAY | END 2019-06-09 16:20 | LOC: NCHCN 16:00 | PROVIDERS: PCP Nurse Practitioner Family; Visit Provider Nurse Practitioner Family | DX: N39.0 Urinary tract infection, site not specified (principal) | CPT/HCPCS: 87077; 87086 ==

== ENCOUNTER 2019-08-16 18:16 | Outpatient (REF) | payer MEDICARE, MEDICAID, SELFPAY ==
[2019-08-16 21:45] LABS: Vitamin D 25 Total 43.4 ng/ml (30-100)
== END 2019-08-16 18:36 ==
LOC: NCHCN 18:16
PROVIDERS: PCP Nurse Practitioner Family; Visit Provider Nurse Practitioner Family
DX: M81.0 Age-related osteoporosis without current pathological fracture (principal); G43.909 Migraine, unspecified, not intractable, without status migrainosus; G24.9 Dystonia, unspecified
CPT/HCPCS: 82306

== ENCOUNTER 2020-01-06 10:56 | Outpatient (REF) | payer MEDICARE, MEDICAID, SELFPAY ==
[2020-01-10 13:35] LABS: Chlamydia Result Negative (Negative); GC Result Negative (Negative)
== END 2020-01-06 11:16 ==
LOC: NCHCN 10:56
PROVIDERS: PCP Nurse Practitioner Family; Visit Provider Nurse Practitioner Family
DX: R10.2 Pelvic and perineal pain (principal); Z11.3 Encounter for screening for infections with a predominantly sexual mode of transmission
CPT/HCPCS: 87491; 87591; 87480; 87510; 87660

== ENCOUNTER 2020-02-17 10:08 | Outpatient (REF) | payer MEDICARE, MEDICAID, SELFPAY ==
[2020-02-17 19:02] LABS: HCT 44.9 % (36.0-46.0); HGB 15.4 g/dL (12.0-15.5); Mean Corp. HGB Concentration 34.3 g/dL (32.0-36.0); Mean Corpuscular Hemoglobin 35.1 pg (27.0-33.0); Mean Corpuscular Volume 102.3 fL (80-95); Mean Platelet Volume 12.2 fL (8.0-11.0); Platelet Count 183 x1000/uL (130-400); RBC 4.39 m/cumm (4.00-5.20); RBC Distribution Width 14.6 % (11.7-14.6); White Blood Cell Count 4.96 k/cumm (4.4-10.8)
[2020-02-17 19:08] LABS: Anion Gap 8.1 mmol/L (3-11); BUN 13 mg/dL (7-18); CO2 25.9 mmol/L (21.0-32.0); CREATININE 0.78 mg/dL (0.55-1.02); Calcium 10.2 mg/dL (8.5-10.1); Chloride 106 mmol/L (98-107); Glucose 93 mg/dL (74-106); Magnesium 2.4 mg/dL (1.8-2.4); Potassium 5.1 mmol/L (3.5-5.1); Sodium 140 mmol/L (136-145)
[2020-02-18 07:39] LABS: ALT 21 U/L (14-59); AST 20 U/L (15-37); Albumin 4.3 g/dL (3.4-5.0); Alkaline Phosphatase 75 U/L (46-116); Bilirubin, Direct 0.11 mg/dL (0.00-0.20); Bilirubin, Total 0.5 mg/dL (0.2-1.0); TSH 1.28 uIU/mL (0.36-3.74); Total Protein 7.1 g/dL (6.4-8.2)
[2020-02-21 12:15] LABS: Folate 11.3 ng/mL (See Note); Vitamin B12 353 pg/mL (211-911)
== END 2020-02-17 10:28 ==
LOC: NCHCN 10:08
PROVIDERS: PCP Nurse Practitioner Family; Visit Provider Nurse Practitioner Family
DX: M54.16 Radiculopathy, lumbar region (principal); M48.061 Spinal stenosis, lumbar region without neurogenic claudication; M54.5 Low back pain; R89.9 Unspecified abnormal finding in specimens from other organs, systems and tissues; I10 Essential (primary) hypertension
CPT/HCPCS: 80048; 80076; 85027; 82607; 82746; 83735; 84443

== ENCOUNTER 2020-02-23 01:22 | Outpatient (CLI) | payer MEDICARE, MEDICAID, SELFPAY ==
--- NOTE | 2020-02-23 | DI.RAD_ITS ---
EXAM: XR LUMBAR SPINE COMPLETE INDICATION: BACK PAIN, M54.5, LUMBAR RADICULOPATHY, M54.16, H/O CHEEK RODS L 4-5,. COMPARISON: XR lumbar spine complete from 07/08/2018 TECHNIQUE: 2D digital imaging was performed. FINDINGS: Prior posterior fusion with hardware in place at L4-5. A disc spacer is seen at this level. Degener ative changes are seen of the facet joints of L5-S1 causing slight spondylolisthesis, unchanged. The re is mild L5-S1 disc space narrowing, unchanged. The more superior disc spaces are well maintained. Small endplate osteophytes are seen. The bony detail somewhat is somewhat obscured in the area of the pelvis due to overlying bowel gas. IMPRESSION: Stable postsurgical and degenerative changes of the lower lumbar spine. DATA REPOSITORY: RADIATION DOSE DELIVERED:
== END 2020-02-23 01:42 ==
PROVIDERS: PCP Nurse Practitioner Family; Visit Provider Nurse Practitioner Family
DX: M54.5 Low back pain (principal); M54.16 Radiculopathy, lumbar region; Z98.1 Arthrodesis status; M43.17 Spondylolisthesis, lumbosacral region; M51.17 Intervertebral disc disorders with radiculopathy, lumbosacral region
CPT/HCPCS: 72110

== ENCOUNTER 2020-03-01 07:50 | Outpatient (REF) | payer MEDICARE, MEDICAID, SELFPAY | END 2020-03-01 08:10 | LOC: NCHCN 07:50 | PROVIDERS: PCP Nurse Practitioner Family; Visit Provider Nurse Practitioner Family | DX: N39.0 Urinary tract infection, site not specified (principal) | CPT/HCPCS: 87086; 87186 ==

== ENCOUNTER 2020-03-22 19:04 | Outpatient (REF) | payer MEDICARE, MEDICAID, SELFPAY | END 2020-03-22 19:24 | LOC: NCHCN 19:04 | PROVIDERS: PCP Nurse Practitioner Family; Visit Provider Nurse Practitioner Family | DX: N39.0 Urinary tract infection, site not specified (principal) | CPT/HCPCS: 87086 ==

== ENCOUNTER 2020-04-26 10:59 | Outpatient (REF) | payer MEDICARE, MEDICAID, SELFPAY ==
[2020-04-26 20:25] LABS: Abs Immature Grans 0.01 k/cumm (0.0-0.09); Absolute Basophil Count 0.06 k/cumm (0.0-0.2); Absolute Eosinophil Count 0.14 k/cumm (0.0-0.7); Absolute Lymphocyte Count 1.84 k/cumm (1.2-3.4); Absolute Monocyte Count 0.75 k/cumm (0.11-0.7); Absolute Neutrophil Count 2.51 k/cumm (1.2-6.7); Basophils % 1.1; Eosinophils % 2.6; HCT 43.7 % (36.0-46.0); HGB 15.2 g/dL (12.0-15.5); Immature Grans % 0.2 %; Lymphocytes % 34.7; Mean Corp. HGB Concentration 34.8 g/dL (32.0-36.0); Mean Corpuscular Hemoglobin 36.6 pg (27.0-33.0); Mean Corpuscular Volume 105.3 fL (80-95); Mean Platelet Volume 12.1 fL (8.0-11.0); Monocytes % 14.1; Neutrophils % 47.3; Platelet Count 177 x1000/uL (130-400); RBC 4.15 m/cumm (4.00-5.20); RBC Distribution Width 14.2 % (11.7-14.6); White Blood Cell Count 5.31 k/cumm (4.4-10.8)
[2020-04-28 10:14] LABS: Hepatitis C Ab w Rflx HCV PCR Negative (Negative)
== END 2020-04-26 11:19 ==
LOC: NCHCN 10:59
PROVIDERS: PCP Nurse Practitioner Family; Visit Provider Nurse Practitioner Family
DX: R89.9 Unspecified abnormal finding in specimens from other organs, systems and tissues (principal); Z11.59 Encounter for screening for other viral diseases
CPT/HCPCS: 86803; 85025

== ENCOUNTER 2020-05-10 08:59 | Outpatient (REF) | payer MEDICARE, MEDICAID, SELFPAY ==
[2020-05-10 21:26] LABS: Calculated LDL 143 mg/dL (<100); Cholesterol 252 mg/dL (<200); Glucose 90 mg/dL (74-106); HDL Cholesterol 90 mg/dL (40-60); Triglyceride 96 mg/dL (<150)
== END 2020-05-10 09:19 ==
LOC: NCHCN 08:59
PROVIDERS: PCP Nurse Practitioner Family; Visit Provider Nurse Practitioner Family
DX: I67.9 Cerebrovascular disease, unspecified (principal)
CPT/HCPCS: 80061; 82947

== ENCOUNTER → 2020-05-18 13:54 | Outpatient (BNVA) | payer MEDICARE, MEDICAID, SELFPAY | PROVIDERS: PCP Nurse Practitioner Family; Referring Provider Nurse Practitioner Family; Visit Provider Psychiatry & Neurology Neurology | DX: M79.605 Pain in left leg (principal); M54.16 Radiculopathy, lumbar region; M54.5 Low back pain; G89.29 Other chronic pain | CPT/HCPCS: 99205; 99215 ==

== ENCOUNTER 2020-05-30 01:12 | Outpatient (CLI) | payer MEDICARE, MEDICAID, SELFPAY ==
--- NOTE | 2020-05-30 08:30 | DI.MRI_ITS ---
EXAM: MR LUMBAR SPINE WO CLINICAL HISTORY: left leg pain, L5?,M79.605. TECHNIQUE: Multiplanar multisequence MRI of the Lumbar spine was performed. COMPARISON: CT CT ABDOMEN PELVIS W from 06/07/2019 CR XR LUMBAR SPINE COMPLETE from 02/23/2020 FINDINGS: Bones: The last intervertebral disc space is designated the L5/S1 level for the numbering purpose of this examination. The vertebral body heights are well maintained. Alignment is satisfactory. Round areas of hyperintensity are seen within the T12 through L3 vertebral bodies on both the T1 and T2 gonzales ghted images most suggestive of hemangiomas or fatty rests. Posterior spinal surgery is seen at L4 a nd L5 and L4-5 discectomy. Cord: The conus tip ends at the L1 level. It is of normal size and signal intensity. T12-L1: No disc herniations or bulges are present. No central spinal canal or neural foraminal stenos is. L1-2: No disc herniations or bulges are present. No central spinal canal or neural foraminal stenosis . L2-3: Mild diffuse disc bulge slightly eccentric to the left. No central spinal canal or neural fora kraina stenosis. L3-4: Mild diffuse disc bulge. Hypertrophic changes of the facets and ligamentum flavum. Mild narro wing of the central spinal canal. No right neural foraminal stenosis. [id number] left neural foraminal stenosis. L4-5: There is artifact in the left aspect of the central spinal canal L4-L5. This is due to the ped icle screw and the discectomy changes. There is a question of soft tissue with in the left neural fo ramen. On the CT scan of the abdomen and pelvis from 06/07/2020, small calcifications are noted in (s eliud 4, image 377) this area. Postcontrast MRI of the lumbar spine is recommended for further evalu ation. No central spinal canal or neural foraminal stenosis. L5-S1: No disc herniations or bulges are present. No central spinal canal or neural foraminal stenosi s. Soft tissues: The visualized SI joints and sacrum are well maintained. The paraspinal soft tissues ar e unremarkable. IMPRESSION: 1. No evidence of significant spinal stenosis or neuroforaminal narrowing. Multilevel degenerative ch anges in the lumbar spine. The findings result in central spinal canal and neural foraminal narrowin g particularly at L3-L4. 2. Postsurgical changes with posterior rods and pedicle screws at L4-L5 and an L4-5 discectomy. 3. Question of a soft tissue mass in the region of the left neural foramen at L4-L5. Postcontrast MR I of the lumbar spine is recommended for further evaluation. DATA REPOSITORY:
== END 2020-05-30 01:32 ==
PROVIDERS: PCP Nurse Practitioner Family; Visit Provider Psychiatry & Neurology Neurology
DX: M47.816 Spondylosis without myelopathy or radiculopathy, lumbar region (principal); R93.7 Abnormal findings on diagnostic imaging of other parts of musculoskeletal system
CPT/HCPCS: 72148

== ENCOUNTER 2020-06-02 01:48 | Outpatient (CLI) | payer MEDICARE, MEDICAID, SELFPAY ==
[2020-06-02 11:12] LABS: CREATININE 0.66 mg/dL (0.55-1.02)
[2020-06-02] MEDS: Gadoterate meglumine 20 ML VIAL 10 ML IVP (11:24)
[2020-06-02] MEDS: Normal Saline Flush 10 ML SYR IVP (11:25)
--- NOTE | 2020-06-02 11:50 | DI.MRI_ITS ---
EXAM: MR LUMBAR SPINE W CLINICAL HISTORY: L4-5 NF growth on MRI w/o,LT LEG PAIN,M79.605. TECHNIQUE: Fat-suppressed T1 axial and sagittal sequences were performed pre and post 10 milliliters of Dotarem IV. COMPARISON: CT CT ABDOMEN PELVIS W from 06/07/2019 CR XR LUMBAR SPINE COMPLETE from 02/23/2020 MR MR LUMBAR SPINE WO from 05/30/2020 MR MR LUMBAR SPINE WO from 05/30/2020 FINDINGS: There is no abnormal soft tissue mass. No abnormal enhancement is seen within the canal or within the vertebral bodies. The conus medullaris appears normal. Artifact is again noted due to pedicle s crews at the L 4 and L5 levels. IMPRESSION: No evidence of soft tissue mass in the left L4-5 neural foramen. DATA REPOSITORY:
== END 2020-06-02 02:08 ==
PROVIDERS: PCP Nurse Practitioner Family; Visit Provider Psychiatry & Neurology Neurology
DX: M79.605 Pain in left leg (principal)
CPT/HCPCS: 72149; 82565

== ENCOUNTER 2020-06-07 13:34 | Outpatient (CLI) | payer MEDICARE, MEDICAID, SELFPAY ==
--- NOTE | 2020-06-07 | DI.CT_ITS ---
EXAM: CT HEAD WO CLINICAL HISTORY: H/O HEAD INJURY,Z87.828,FELL, NO LOC, ON PLAVIX, HEADACHE. TECHNIQUE: Imaging Protocol: Axial computed tomography images with coronal and sagittal reformatted images were created and reviewed COMPARISON: No exams were available for comparison FINDINGS: Ventricles and Extra axial spaces: Normal in size and morphology for the patient's age. Hemorrhage: None. Cerebral parenchyma: Normal. Midline shift: None. Brainstem/Cerebellum: Normal. Calvarium: Normal. Visualized Paranasal sinuses/Mastoids: Clear. Soft Tissues: Unremarkable. IMPRESSION: No acute intracranial process. RADIATION DOSE DELIVERED: 649.19mGy.cm Total DLP DATA REPOSITORY: All CT scans at this facility are submitted to the National Radiology Data Registry (NRDR) Dose Index Registry (DIR) with the [employer] (ACR). RADIATION OPTIMIZATION: All CT scans at this facility use at least one of these dose optimization te chniques: automated exposure control; mA and/or kV adjustment per patient size (includes targeted exa ms where dose is matched to clinical indication); or iterative reconstruction.
== END 2020-06-07 13:54 ==
PROVIDERS: PCP Nurse Practitioner Family; Visit Provider Nurse Practitioner Family
DX: Z87.828 Personal history of other (healed) physical injury and trauma (principal); R51 Headache; Z79.01 Long term (current) use of anticoagulants
CPT/HCPCS: 70450

== ENCOUNTER → 2020-07-24 09:05 | Outpatient (BNVA) | payer MEDICARE, MEDICAID, SELFPAY | PROVIDERS: PCP Nurse Practitioner Family; Referring Provider Nurse Practitioner Family; Visit Provider Psychiatry & Neurology Neurology | DX: M54.16 Radiculopathy, lumbar region (principal); M79.605 Pain in left leg; M54.2 Cervicalgia; M54.5 Low back pain; G89.29 Other chronic pain | CPT/HCPCS: 95885; 95909; 99214 ==

== ENCOUNTER 2020-11-13 16:16 | Outpatient (REF) | payer MEDICARE, MEDICAID, SELFPAY ==
[2020-11-13 15:44] LABS: HCT 42.2 % (36.0-46.0); MCH 35.4 pg (27.0-33.0); MCHC 33.2 % (32.0-36.0); MCV 106.6 fL (80-95); Platelet Count 181 10^3/uL (130-400); RBC 3.96 10^6/uL (3.93-5.22); RDW 13.2 % (11.7-14.6); RDW-SD 52.8 fL; WBC 4.93 10^3/uL (4.4-10.8)
== END 2020-11-13 16:36 ==
LOC: NCHCN 16:16
PROVIDERS: PCP Nurse Practitioner Family; Visit Provider Nurse Practitioner Family
DX: Z51.81 Encounter for therapeutic drug level monitoring (principal)
CPT/HCPCS: 85027; U0003

== ENCOUNTER 2021-03-12 09:29 | Outpatient (REF) | payer MEDICARE, MEDICAID, SELFPAY ==
[2021-03-12 15:51] LABS: HCT 44.4 % (36.0-46.0); HGB 14.9 g/dL (11.2-15.7); MCH 34.9 pg (27.0-33.0); MCHC 33.6 % (32.0-36.0); MPV 12.7 fL (8.0-11.0); Platelet Count 153 10^3/uL (130-400); RBC 4.27 10^6/uL (3.93-5.22); RDW 13.5 % (11.7-14.6); RDW-SD 52.5 fL; WBC 5.09 10^3/uL (4.4-10.8)
[2021-03-12 16:23] LABS: ALT 17 U/L (14-59); AST 18 U/L (15-37); Anion Gap 11.2 mmol/L (3-11); BUN 14 mg/dL (7-18); CO2 24.8 mmol/L (21.0-32.0); CREATININE 0.8 mg/dL (0.55-1.02); Calcium 9.7 mg/dL (8.5-10.1); Calculated LDL 148 mg/dL (<100); Chloride 109 mmol/L (98-107); Cholesterol 244 mg/dL (<200); Glucose 89 mg/dL (74-106); HDL Cholesterol 85 mg/dL (40-60); Magnesium 2.3 mg/dL (1.8-2.4); Sodium 145 mmol/L (136-145); Triglyceride 57 mg/dL (<150)
[2021-03-12 16:32] LABS: Vitamin D 25 Total 39.9 ng/mL (30-100)
[2021-03-12 16:47] LABS: Creatine Kinase 60 U/L (26-192)
[2021-03-13 11:21] LABS: Iron 47 ug/dL (50-170); Total Iron Binding Capacity 331 ug/dL (250-450); Transferrin Sat 14 % (15-50)
[2021-03-13 11:48] LABS: Vitamin B12 302 pg/mL (193-986)
[2021-03-13 14:37] LABS: Chlamydia Result Negative (Negative); GC Result Negative (Negative)
== END 2021-03-12 09:30 | disposition home or self-care (01) ==
LOC: NCHCN 09:29
PROVIDERS: PCP Nurse Practitioner Family; Visit Provider Nurse Practitioner Family
DX: R79.89 Other specified abnormal findings of blood chemistry (principal); E78.5 Hyperlipidemia, unspecified; G43.909 Migraine, unspecified, not intractable, without status migrainosus; M48.061 Spinal stenosis, lumbar region without neurogenic claudication; M81.0 Age-related osteoporosis without current pathological fracture; Z79.899 Other long term (current) drug therapy; N89.8 Other specified noninflammatory disorders of vagina; K59.00 Constipation, unspecified; Z11.3 Encounter for screening for infections with a predominantly sexual mode of transmission; G24.9 Dystonia, unspecified
CPT/HCPCS: 80048; 80061; 82306; 82550; 85027; 87491; 87591; 82607; 83540; 83550; 83735; 84450; 84460; 87480; 87510; 87660

== ENCOUNTER 2021-08-10 08:18 | Outpatient (CLI) | payer MEDICARE, MEDICAID, SELFPAY ==
--- NOTE | 2021-08-10 08:15 | RT.EKG_ITS ---
APPROVED REPORT Exam: Resting ECG Reason for Exam: [facility] Patient Location: O HR:70 bpm ECG Measurements Heart Rate 70 AXIS DC 171 P 73 QRSd 109 QRS -26 QT 426 T 54 QTc 460 Conclusion Sinus rhythm...normal P axis, V-rate 50- 99 Multiform ventricular premature complexes...short R-R, variable morphology Borderline left axis deviation...QRS axis (-15,-29) Poor R wave progression, cannot exclude old anterior infarct
== END 2021-08-10 08:19 | disposition home or self-care (01) ==
LOC: DI.CARD 08:20
PROVIDERS: PCP Nurse Practitioner Family; Visit Provider Internal Medicine Cardiovascular Disease
DX: I42.9 Cardiomyopathy, unspecified (principal)
CPT/HCPCS: 93010

== ENCOUNTER → 2021-08-10 08:42 | Outpatient (BNVA) | payer MEDICARE, MEDICAID, SELFPAY | PROVIDERS: PCP Nurse Practitioner Family; Referring Provider Nurse Practitioner Family; Visit Provider Internal Medicine Cardiovascular Disease | DX: I42.9 Cardiomyopathy, unspecified (principal); E78.5 Hyperlipidemia, unspecified; M79.7 Fibromyalgia; R94.31 Abnormal electrocardiogram [ECG] [EKG] | CPT/HCPCS: 93005; 99203; 99214 ==

== ENCOUNTER 2021-09-12 01:57 | Outpatient (CLI) | payer MEDICARE, MEDICAID, SELFPAY ==
--- NOTE | 2021-09-12 07:37 | DI.US_ITS ---
APPROVED REPORT EXAM: Comprehensive 2D, Doppler, and color-flow Echocardiogram Patient Location: Out-Patient Subway Guard: Angeles Knowles RDCS (AE) Indications: Cardiomyopathy Other Information Study Quality: Adequate Conclusion Normal left ventricular wall thickness and chamber size. Estimated ejection fraction is 45 to 50%. There is mild global hypokinesis Normal right ventricular size and systolic function Both atria are normal in size Trileaflet aortic valve without stenosis or regurgitation Mild mitral annular calcification. Mild mitral regurgitation Normal tricuspid valve with trace regurgitation. Estimated right ventricular systolic pressure is no rmal at 23 mmHg Wall motion Left Ventricle The left ventricle is normal size. Left ventricular systolic function is mildly decreased. There is n ormal left ventricular wall thickness. Mild global hypokinesis There is no ventricular septal defect visualized. LVEF is 45-50%. Right Ventricle Right ventricle is grossly normal in size. Right ventricular systolic function is grossly normal. The RVSP is 23.5mmHg. Atria The left atrium size is normal. The right atrium size is normal. The interatrial septum is intact wit h no evidence for an atrial septal defect. Aortic Valve The aortic valve is normal in structure. Aortic valve is trileaflet. There is no aortic valvular sten osis. No aortic regurgitation is present. Mitral Valve Mild mitral annular calcification. No evidence of mitral valve stenosis. Mild mitral regurgitation. Tricuspid Valve The tricuspid valve is normal in structure. There is no tricuspid valve stenosis. Trace tricuspid reg urgitation. Pulmonic Valve The pulmonary valve is normal in structure. There is no pulmonic valvular stenosis. Trace pulmonic re gurgitation. Great Vessels The aortic root is normal in size. Ascending aorta is not well visualized. IVC is normal in size and collapses >50% with inspiration. Pericardium There is no pericardial effusion. 2D Dimensions IVSD d PLAX 0.85 cm F: 0.6-1.0 LV Vol A2C d MOD 62.4 mL LVPW d PLAX 0.86 cm F: 0.6 - 1.0 LV Vol A4C d MOD 54.3 mL LVID d PLAX 4.81 cm F: 3.8 - 5.2 LA vol/ BSA A2C s A-L 26.1 mL/m2 LVDs 3.75 cm F: 2.2 - 3.5 LA vol/ BSA A4C s A-L 24.4 mL/m2 Ao Root d 2.82 cm F: 2.7 - 3.3 LA Vol/ BSA Biplane s A-L 27.2 mL/m2 RA Area A4C 9.01 cm2 LA Area A4C s MOD 12.07 cm2 RA Vol/ BSA A4C s A-L 14.9 mL/m2 LA Area A2C s MOD 13.43 cm2 LV EF Teichholz 43.8 % LV EF A4C MOD 45.6 % LVEF (Longoria's) 45.78 % F: 54 - 74 LV EF A2C MOD 45.7 % LV Volume 51.28 mL F: 46 - 106 LV EF Biplane MOD 45.8 % LV Volume Index 38.84 mL/m2 F: 29 - 61 SV 26.74 mL LV Vol Biplane MOD 58.4 mL SV Index 20.21 mL/m2 FS 21.65 % M-Mode TAPSE 1.79 cm (M/F) >1.7 LV Diastology MV E' medial 0.054 (>0.07 m/s) E/A Ratio 0.9 LV E/e MED 8.15 (<14) MV E Vmax 0.44 (0.4-1.3 m/s) MV E' lateral 0.062 (>0.1 m/s) MV A Vmax 0.50 (0.4-1.3 m/s) LV E/e LAT 7.10 (<14) MV E/A Ratio 0.80 MV E/E' medial 8.15 MV E/E' lateral 7.12 Aortic Valve LVOT Area 3.11 cm2 AoV Area Vmax 2.44 cm2 LVOT Vmax 0.57 m/s AoV Area/ BSA (Vmax) 1.84 cm2/m2 LVOT Mean Zhang. 0.41 m/s TAMARA Mean Zhang. 2.45 cm2 LVOT Peak Grad 1.3 mmHg TAMARA Mean Hzang. Index 1.85 cm2/m2 LVOT Mean Grad 0.8 mmHg LVOT VTI 0.138 m LVOT Diam s 1.95 cm AoV Vmax 0.72 m/s Velocity Ratio 0.79 AoV Mean Zhang. 0.52 m/s AoV Peak Grad 2.1 mmHg LVOT SV 42.77 mL AoV Mean Grad 1.2 mmHg AoV VTI 0.169 m AoV Area VTI 2.53 cm2 AoV Area/ BSA (VTI) 1.91 cm/m2 Mitral Valve MV DT 239 (160-240 msec) MR Vmax 4.84 m/s MV PHT 69 msec MR VTI 1.771 m MV Area PHT 3.17 cm2 MR Peak Grad 93.7 mmHg MV VTI 0.209 m MR Mean Grad 69.7 mmHg MV VTI Annulus 0.191 m MR PISA Radius 0.26 cm MV Area VTI 1.87 (4.0-6.0 cm2) MR EROA 0.03 cm2 MR Aliasing Velocity 0.35 m/s MR PISA 0.42 cm2 Pulmonary Valve PV Vmax 0.62 (0.5-1.5 m/s) RVOT Peak Gr. 0.56 mmHg PV Peak Grad 1.6 mmHg RVOT Mean Gr. 0.25 mmHg PV Mean Grad 0.9 mmHg RVOT VTI 0.087 m PV VTI 0.155 m RVOT Vmax 0.38 m/s Tricuspid Valve TR Peak Grad 20.4 mmHg TR Vmax 2.26 m/s RVSP (TR) 23.5 mmHg
== END 2021-09-12 02:17 ==
PROVIDERS: PCP Nurse Practitioner Family; Visit Provider Internal Medicine Cardiovascular Disease
DX: I42.9 Cardiomyopathy, unspecified (principal); I34.0 Nonrheumatic mitral (valve) insufficiency
CPT/HCPCS: 93306

== ENCOUNTER → 2021-11-09 09:10 | Outpatient (BNVA) | payer MEDICARE, MEDICAID, SELFPAY | PROVIDERS: PCP Nurse Practitioner Family; Referring Provider Nurse Practitioner Family; Visit Provider Internal Medicine Cardiovascular Disease | DX: I42.9 Cardiomyopathy, unspecified (principal); E78.5 Hyperlipidemia, unspecified; Z71.2 Person consulting for explanation of examination or test findings | CPT/HCPCS: 99214; 99213 ==

== ENCOUNTER 2022-03-27 12:09 | Outpatient (REF) | payer MEDICARE, MEDICAID, SELFPAY ==
[2022-03-27 15:07] LABS: HCT 43.6 % (36.0-46.0); HGB 14.5 g/dL (11.2-15.7); MCH 35.1 pg (27.0-33.0); MCHC 33.3 % (32.0-36.0); MCV 106 fL (80-95); MPV 11.6 fL (8.0-11.0); Platelet Count 180 10^3/uL (130-400); RBC 4.13 10^6/uL (3.93-5.22); RDW 14.1 % (11.7-14.6); RDW-SD 55.9 fL; WBC 4.93 10^3/uL (4.4-10.8)
[2022-03-27 15:31] LABS: BUN 19 mg/dL (7-18); CREATININE 0.7 mg/dL (0.55-1.02); Calcium 9.1 mg/dL (8.5-10.1); Calculated LDL 181 mg/dL (<100); Chloride 108 mmol/L (98-107); Cholesterol 293 mg/dL (<200); Glucose 106 mg/dL (74-106); HDL Cholesterol 79 mg/dL (40-60); Potassium 4.1 mmol/L (3.5-5.1); Sodium 142 mmol/L (136-145); Triglyceride 165 mg/dL (<150)
== END 2022-03-27 12:10 | disposition home or self-care (01) ==
LOC: NCHCN 12:09
PROVIDERS: PCP Nurse Practitioner Family; Visit Provider Nurse Practitioner Family
DX: E78.5 Hyperlipidemia, unspecified (principal); Z51.81 Encounter for therapeutic drug level monitoring
CPT/HCPCS: 80048; 80061; 85027

== ENCOUNTER → 2022-05-10 09:06 | Outpatient (BNVA) | payer MEDICARE, MEDICAID, SELFPAY | PROVIDERS: PCP Nurse Practitioner Family; Referring Provider Nurse Practitioner Family; Visit Provider Internal Medicine Cardiovascular Disease | DX: I42.9 Cardiomyopathy, unspecified (principal); E78.5 Hyperlipidemia, unspecified | CPT/HCPCS: 99213 ==

== ENCOUNTER 2022-06-05 10:09 | Outpatient (REF) | payer MEDICARE, MEDICAID, SELFPAY ==
[2022-06-05 14:34] LABS: Ferritin 59 ng/mL (8-252); TSH 1.74 uIU/mL (0.36-3.74)
[2022-06-06 08:23] LABS: Iron 117 ug/dL (50-170)
== END 2022-06-05 10:10 | disposition home or self-care (01) ==
LOC: NCHCN 10:09
PROVIDERS: PCP Nurse Practitioner Family; Visit Provider Nurse Practitioner Family
DX: F41.9 Anxiety disorder, unspecified; R55 Syncope and collapse; Z51.81 Encounter for therapeutic drug level monitoring
CPT/HCPCS: 82728; 83540; 83550; 84439; 84443

== ENCOUNTER 2022-07-11 04:01 | Outpatient (RCR) | payer MEDICARE, MEDICAID, SELFPAY ==
--- NOTE | 2022-07-11 10:00 | HOLTER_ITS ---
APPROVED REPORT Conclusion This is a 48-hour Holter monitor, reportedly ordered for palpitations Predominant rhythm was sinus with an average heart rate of 76. Minimum was 61, maximum 113 There were frequent ventricular ectopic beats comprising 10% of total. There were occasional couplet s, rare triplets There were rare atrial premature beats There was no atrial fibrillation, no supraventricular tachycardia, no high-grade AV block, no pauses greater than 3 seconds No patient symptoms were reported
== END 2022-07-19 23:59 | disposition home or self-care (01) ==
LOC: RT 04:01
PROVIDERS: PCP Nurse Practitioner Family; Visit Provider Nurse Practitioner Family
DX: R00.2 Palpitations (principal); I49.3 Ventricular premature depolarization
CPT/HCPCS: 93227; 93225; 93226